=== PATIENT | male | born 1990 | race Caucasian/White ===

== ENCOUNTER 2023-12-01 03:50 | Emergency (ER) | payer MEDICAID, SELFPAY ==
[2023-12-01 03:51] VITALS: BP 123/84; PULSE 68; RESP 20; TEMP 36.8; O2SAT 98; BMI 26.6
--- NOTE | 2023-12-01 04:15 | ED.VIS.DENTA ---
HPI History of Present Illness Chief Complaint: Dental Informant: patient Narrative Narrative: Dental pain has been present left mandibular molars for about 2 weeks, but gradually worsening and now more severe. No systemic symptoms. No bleeding or drainage. He feels like now in the last day or 2 is having some swelling in that area. [facility] Medical History Kidney failure Home Medications ?Medication ?Instructions ?Recorded ?Last Taken ?Type amoxicillin 500 mg tablet 500 mg PO TID #30 tabs 12/01/23 Unknown Rx hydrocodone-acetaminophen 5-325mg 1 tab PO Q6H PRN PRN Pain 2 days 12/01/23 Unknown Rx 5mg-325mg #8 TABLETS Allergy/AdvReac Type Severity Reaction Status Date / Time No Known Allergies Allergy Verified 12/08/13 18:22 Surgical History (Updated 12/01/23 @ 03:54 by Rhianna Awan) Hx of leg amputation Social History Smoking Status: Current every day smoker tobacco type: e-cigarettes ROS ROS ED Constitutional Constitutional ED: Denies chills or fever(s) Eyes Eyes: Denies change in vision or double vision ENT ENT ED: Reports dental pain; Denies sinus pain or throat swelling Cardiovascular Cardiovascular: Denies chest pain or palpitations Respiratory/Chest Respiratory/Chest: Denies cough or dyspnea Integumentary Denies abscess or rash Neurologic Neurologic: Denies headache(s), paresthesias or weakness EXAM Physical Exam Const Vital Signs: 12/01/23 03:51 Temperature 98.2 F Temperature Source Oral Pulse Rate 68 Respiratory Rate 20 H Blood Pressure 123/84 H Blood Pressure Mean 97 Pulse Ox 98 Oxygen Delivery Method Room Air Positive well nourished and well developed General Appearance ED: well developed and NAD HEENT HEENT Narrative: Severe dental decay left mandibular molars. The first 1 is down to the gumline, the second one half the tooth is missing. There is no way to fill them with temporary filling. There is no trismus. There is no tongue elevation or sublingual distention/tenderness. There is tenderness in the submandibular soft tissues next to the teeth, but there is no pointing collection/abscess palpable, internally or externally. Face and Sinus: sinuses nontender Throat: posterior oropharynx normal Eyes PERRL and EOMs intact bilaterally Neck no lymphadenopathy and supple Resp normal respiratory effort Neuro oriented x3 and CN's II-XII intact bilaterally Sensorium / Orientation: alert Gait (Neuro): normal gait Psych mental status grossly normal and thought process normal Skin no rashes or lesions noted and no wounds MDM MDM MDM Narrative Medical decision making narrative: Patient does likely have an early dental infection here and there is significant decay associated with that, but there is no drainable collection or abscess. He asked about a dental block but I do not think that is a good idea since an inferior alveolar nerve block will need to be performed near the location of this infection. Prescribed short course of [place] and antibiotics and given dental resource list. Discharge Plan Triage Chief Complaint: Dental ED Provider: Danilo Ferrer Dx/Rx/DC Orders Clinical Impression: Dental infection, Dental decay Instructions: ED Dental Pain Prescriptions: New hydrocodone-acetaminophen 5-325 mg tablet 1 tab PO Q6H PRN PRN (Reason: Pain) 2 Days Qty: 8 0RF amoxicillin 500 mg tablet 500 mg PO TID Qty: 30 0RF Primary Care Provider: Care Physician,No Primary Referrals: Dentist,Your [STAFF PHYSICIAN] - As soon as possible (see attached resource list if needed) Print Language: Indonesian Disposition Disposition: Home, Self Care
[2023-12-01] MEDS: AMOXICILLIN 500 MG CAPSULE PO (04:25)
[2023-12-01] MEDS: HYDROcodone Bitartrate/Apap 5/325 Tablet PO (04:25)
== END 2023-12-01 04:41 | disposition home or self-care (01) ==
PROVIDERS: Emergency Provider Emergency Medicine; Visit Provider Emergency Medicine
DX: K04.7 Periapical abscess without sinus (principal); K02.9 Dental caries, unspecified; F17.290 Nicotine dependence, other tobacco product, uncomplicated
CPT/HCPCS: 99282

== ENCOUNTER 2024-02-15 10:41 | Emergency (ER) | payer MEDICAID, SELFPAY ==
[2024-02-15 10:41] VITALS: BP 127/99; PULSE 65; RESP 16; TEMP 36.2; O2SAT 97; BMI 25.9
--- NOTE | 2024-02-15 10:56 | ED.RN ---
PT PREVIOUSLY SEEN HERE FOR SAME C/O UPPER RIGHT DENTAL PAIN. 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 PT ADVISED WE WILL GIVE HIM CLINIC INFORMATION AT D/C
--- NOTE | 2024-02-15 11:18 | ED.VIS.DENTA ---
HPI History of Present Illness Chief Complaint: Dental Informant: patient Onset/Context/Timing Onset: Today Context: Sudden Onset Timing: Continuous Quality: Dull, aching, throbbing Location: Right upper and lower molars Worsened by: Nothing Relieved by: - (Nothing) Associated Symptoms Assocated Symptom - Dental: jaw swelling, cold sensitivity and hot sensitivity; Negative for fever or face swelling Narrative Narrative: Patient presents with right upper and lower dental pain that began this morning. Patient states it began rather suddenly. Patient states it is constant. Patient describes it as dull, aching, and throbbing. Patient states nothing makes it better nothing makes it worse. Patient admits to some swelling of his jaw. Patient also admits to hot and cold sensitivity. Patient denies any fevers or chills. PFSH PFSH Medical History Kidney failure Home Medications ?Medication ?Instructions ?Recorded ?Last Taken ?Type amoxicillin 500 mg tablet 500 mg PO TID #30 tabs 12/01/23 Unknown Rx hydrocodone-acetaminophen 5-325mg 1 tab PO Q6H PRN PRN Pain 2 days 12/01/23 Unknown Rx 5mg-325mg #8 TABLETS penicillin V potassium 500 mg 500 mg PO 4X/DAY #40 tabs 02/15/24 Unknown Rx tablet Allergy/AdvReac Type Severity Reaction Status Date / Time No Known Allergies Allergy Verified 02/15/24 10:44 Surgical History Hx of leg amputation Social History Smoking Status: Current every day smoker tobacco type: e-cigarettes ROS ROS ED Constitutional Constitutional ED: Denies chills or fever(s) Eyes Eyes: Denies blurry vision or change in vision ENT ENT ED: Denies rhinorrhea or sore throat Cardiovascular Cardiovascular: Denies chest pain or palpitations Respiratory/Chest Respiratory/Chest: Denies cough or dyspnea Gastrointestinal Gastrointestinal: Denies nausea or vomiting Genitourinary Genitourinary ED: Denies dysuria or hematuria Musculoskeletal Musculoskeletal: Denies back pain or neck pain Integumentary Denies abscess or rash Neurologic Neurologic: Denies headache(s) or weakness Allergic/Immunologic Allergic/Immunologic ED: Denies mouth swelling or urticaria EXAM Physical Exam Const Vital Signs: 02/15/24 10:41 Temperature 97.2 F L Temperature Source Temporal Pulse Rate 65 Respiratory Rate 16 Blood Pressure 127/99 H Blood Pressure Mean 108 Pulse Ox 97 Oxygen Delivery Method Room Air Positive well nourished and well developed General Appearance ED: well developed and NAD HEENT Mouth ED: Yes oral and palatal mucosa normal Mouth: oral and palatal mucosa normal Teeth and Gingiva: caries and gingiva abnormal Positive for gingival edema Throat: posterior oropharynx normal Neck supple and no JVD Neuro oriented x3, CN's II-XII intact bilaterally, moves all extremities, no focal motor deficits and no sensory deficits noted Sensorium / Orientation: alert Motor Exam: strength 5/5 throughout MDM MDM MDM Narrative Medical decision making narrative: Nicotine cessation was discussed. Patient was given a dose of Pen-Vee K here. Patient was also given a dose of [place] here. Patient was given a prescription for Pen-Vee K. Patient was instructed to follow-up with his dentist in 5 to 7 days for further evaluation and treatment of his dental caries. Patient was instructed to use [id number] ibuprofen or Tylenol as needed for pain. Patient was instructed to return if worse in any way. Patient understood and was agreeable with the plan. All questions were answered. Discharge Plan Triage Chief Complaint: Dental ED Provider: Dinesh Vyas Dx/Rx/DC Orders Clinical Impression: Infected dental caries, Dental decay, Nicotine vapor product user Instructions: ED Dental Pain, ED Dental Cavity Prescriptions: New penicillin V potassium 500 mg tablet 500 mg PO 4X/DAY Qty: 40 0RF No Action hydrocodone-acetaminophen 5-325 mg tablet 1 tab PO Q6H PRN PRN (Reason: Pain) 2 Days Qty: 8 0RF amoxicillin 500 mg tablet 500 mg PO TID Qty: 30 0RF Primary Care Provider: Care Physician,No Primary Referrals: Care Physician,No Primary [Primary Care Provider] - Print Language: Urdu Disposition Disposition: Home, Self Care
[2024-02-15] MEDS: HYDROcodone Bitartrate/Apap 5/325 Tablet PO (11:31)
[2024-02-15] MEDS: Penicillin Vk 250 MG Tablet 500 MG PO (11:32)
[2024-02-15 11:33] VITALS: BP 127/99; PULSE 65; RESP 16; TEMP 36.2; O2SAT 97
== END 2024-02-15 11:34 | disposition home or self-care (01) ==
PROVIDERS: Emergency Provider Emergency Medicine; Visit Provider Emergency Medicine
DX: K02.9 Dental caries, unspecified (principal); F17.290 Nicotine dependence, other tobacco product, uncomplicated
CPT/HCPCS: 99283